=== PATIENT | female | born 1965 | race Two or more races ===

== ENCOUNTER 2021-01-29 11:53 | Outpatient (CLI) | payer OTHER ==
[~2021-01-29 11:53] MED LIST: LEXAPRO5 MG
== END 2021-01-29 12:21 | disposition home or self-care (01) ==
LOC: RAD 11:53
PROVIDERS: ATTEND Obstetrics & Gynecology Gynecology
DX: M25.542 Pain in joints of left hand (principal); M25.561 Pain in right knee; M79.671 Pain in right foot; M25.541 Pain in joints of right hand

== ENCOUNTER 2022-03-02 16:03 | Inpatient (IN) | payer OTHER ==
[~2022-03-02] VITALS: Wt 47.6 kg
--- NOTE | 2022-03-02 17:12 | NUR ---
PTE SE RECIBE POR PALPITACIONES NAUSEAS Y DESHIDRATACION REFIERE PTE.
--- NOTE | 2022-03-02 19:40 | NUR ---
SE RECIBE PTE FEMERNINA ALERTA Y ORIENTADA X3,ES COLOCADA EN CAMA #2 ICUER,SE CONECTA A MONITOR CARDIACO TERRENCE Y OXIMETRIA CONMTINUA,SE REALIZAN S/V Y SE NOTIFICA A ,PTE CON ARRITMIA,VIDYA REALIZA ORDENES LO CUAL SE REALIZA,ESTA LUEGO DE MEDICAMENTO COVIERTE RITMO CARDIACO LO CUAL EVALUA Y SE LE NOTIFICA QUE LUEGO DE 30MINUTOS NO PRESENTA B/P POR MAQUINA NI MANUAL,SE NICOL MUESTRAS Y SE ENVIAN A LABORATORIO,SE CANALIZA Y COLOCAN 2 H/L PATENTES LIBRES DE EDEMA Y ENROEJECIMIENTO,PTE SE OBSERVA PALIDA Y SUDOROZA. SE LE COLOCA DRIP DE LEVOPHED 4/250@5ML/HR,SE MANTIENE A PTE EN VIGILANCIA TERRENCE POR CAMBIOS.
[2022-03-04] MEDS ORDERED: LANSOPRAZOLE30 MG (11:40)
[2022-03-04] MEDS ORDERED: PROGESTERONE100 M1 (11:40)
[2022-03-04] MEDS ORDERED: ZOLPIDEM TARTRA10 MG (11:40)
== END 2022-03-04 17:20 | disposition home or self-care (01) | DRG 310 ==
LOC: ER 16:03 → MEDJ 22:37 → ICU-2 22:37 → MEDJ 03-03 14:25
PROVIDERS: ADMIT Internal Medicine; ATTEND Internal Medicine
PROC: B24BZZZ Ultrasonography of Heart with Aorta (ICD-10-PCS; principal; 2022-03-02)
PROC: 4A12X4Z Monitoring of Cardiac Electrical Activity, External Approach (ICD-10-PCS; 2022-03-03)
PROC: C23GYZZ Positron Emission Tomographic (PET) Imaging of Myocardium using Other Radionuclide (ICD-10-PCS; 2022-03-04)
DX: I47.1 Supraventricular tachycardia (principal); I95.89 Other hypotension; R00.2 Palpitations; Z20.822 Contact with and (suspected) exposure to COVID-19